=== PATIENT | female | born 1995 | race Caucasian/White ===

== ENCOUNTER 2016-08-15 19:02 | Emergency (ER) | payer OTHER ==
[2016-08-15 19:15] VITALS: BP 157/77; PULSE 102; RESP 18; TEMP 98; O2SAT 97
[2016-08-15] MEDS ORDERED: BENZONATATE 100 MG CAP PO ONE (20:38)
--- NOTE | 2016-08-15 21:46 | UCPHY ---
H & P Time Seen by Provider: 08/15/16 20:36 Patient Type: New HPI/ROS: HPI Cough. 20-year-old female by private vehicle. She complains of cough, muscle aches, low-grade fever, persistent since evening. Cough described as dry. She has been using her nebulizer albuterol at home which she uses for her asthma without any relief. ROS: Constitutional: As above, no chills. No weakness. Eyes: No discharge. No changes in vision. ENT: No sore throat. No nasal congestion or rhinorrhea. Respiratory: As above. No shortness of breath. Cardiac: No chest pain, no palpitations. Gastrointestinal: No abdominal pain, no vomiting, no diarrhea. Genitourinary: No hematuria. No dysuria or increased frequency with urination. Musculoskeletal: As above. Skin: No rashes. Neurological: No headache. No focal weakness or altered sensation. Past medical history: Asthma. As above. Social history: Nonsmoker. Here by herself. [employer]. Physical Exam: General Appearance: Alert, no distress. This patient is responding to questions appropriately and in full sentences. This patient appears well- hydrated and well-nourished. Eyes: Pupils equal and round no pallor or injection. No lid edema, erythema or injection. ENT, Mouth: Mucous membranes are moist. The pharyngeal tissues are unremarkable. No edema or swelling. No asymmetry suggestive of abscess. No erythema or exudates. Respiratory: There are no retractions, faint rhonchi and scant wheezing on exhalation bilaterally. Dry hacking cough. No tachypnea. Cardiovascular: Regular rate and rhythm. No murmur. Neurological: Motor sensory function is grossly intact. Cranial nerves are normal. Gait is normal. Skin: Warm and dry, no rashes. Musculoskeletal: Neck is supple and nontender. Extremities are symmetrical. All joints range without pain or impingement. Psychiatric: No agitation. No depression. Database: EKG: Imaging: Chest x-ray PA and lateral; the cardiac mediastinal silhouette is unremarkable. No evidence of infiltrate or pneumothorax. No acute cardiopulmonary disease process noted. Interpreted by me. Procedures: Emergency department course: Patient given 60 mg of oral prednisone. She has had no relief from her albuterol nebulizer at home. She was given 200 mg of Tessalon Perle. Chest x- ray obtained. Influenza negative. 9:45 p.m., patient re-evaluated. Resting comfortably at this time. States that she is feeling better. Cough is better. Results of her x-ray was discussed. She is outside of the treatment time window for influenza and Tamiflu. She feels comfortable going home and I feel she is safe for discharge. She will be prescribed a short course of prednisone, Tessalon Perle and Hycodan cough syrup. Follow-up and return to emergency department precautions were reviewed with her. All of her questions were answered. She was discharged in good condition. Differential Diagnosis: The differential diagnosis on this patient includes but is not limited to bronchitis, viral upper respiratory infection, influenza. Pneumonia unlikely. This represents a partial list of diagnoses considered. These considerations are based on history, physical exam, past history, reassessment and diagnostic testing. Smoking Status: Never smoked Constitutional: Initial Vital Signs Temperature (C) 36.6 C 08/15/16 19:12 Heart Rate 102 H 08/15/16 19:12 Respiratory Rate 18 08/15/16 19:12 Blood Pressure 157/77 H 08/15/16 19:12 O2 Sat (%) 97 08/15/16 19:12 O2 Delivery Mode Room Air Allergies/Adverse Reactions: Sulfa (Sulfonamide Antibiotics) Allergy (Verified 08/15/16 19:11) Home Medications: Medication Instructions Recorded Bc Pills 08/15/16 Benzonatate [Tessalon Pearles] 100 mg PO TID #12 cap 08/15/16 HYDROcodone/HOMATROPINE HYCODA 1 tsp PO Q4-6PRN PRN #120 ml 08/15/16 [Hycodan Syrup (RX)] Zoloft 100mg (*) 08/15/16 predniSONE [prednisone 20mg (RX)] 60 mg PO DAILY #9 tab 08/15/16 Medical Decision Making - Data Points Laboratory Results: 08/15/16 19:20 Influenza Typ A,B (DFA) NEGATIVE FOR FLU (NEGATIVE) Medications Given: Discontinued Medications Benzonatate (Tessalon Pearles) 200 mg PO EDNOW ONE Stop: 08/15/16 20:39 Last Admin: 08/15/16 21:12 Dose: 100 mg Departure - Departure Disposition: Home, Routine, Self-Care Clinical Impression: Bronchitis, Upper respiratory infection Condition: Good Instructions: Acute Bronchitis (ED) Additional Instructions: Read and follow provided instructions. Follow-up with your primary care physician in 1-2 days for re-evaluation. Take medication as prescribed. Ibuprofen dosin mg every 6 hours with meals for the next 3 days only. Use albuterol nebulizer inhaler every 2-4 hours as needed for cough and wheezing. Return to the emergency department for worsening symptoms or other serious concerns. Referrals: NONE *PRIMARY CARE P,. [Primary Care Provider] - As per Instructions Prescriptions: Benzonatate [Tessalon Pearles] 100 mg PO TID #12 cap HYDROcodone/HOMATROPINE HYCODA [Hycodan Syrup (RX)] 1 tsp PO Q4-6PRN PRN #120 ml PRN Reason: Cough predniSONE [prednisone 20mg (RX)] 60 mg PO DAILY #9 tab - PQRS PQRS Measurement: Not applicable.
[2016-08-15] MEDS ORDERED: predniSONE 20 MG TAB PO ONE (21:48)
== END 2016-08-15 21:49 | disposition home or self-care (01) ==
LOC: CED 19:02
DX: J40 Bronchitis, not specified as acute or chronic (principal); J06.9 Acute upper respiratory infection, unspecified
CPT/HCPCS: 71020-PO; 87400-PO; 99203-PO; G0463-PO

== ENCOUNTER 2018-08-30 13:37 | Emergency (ER) | payer OTHER ==
[2018-08-30] MEDS ORDERED: ASPIRIN 81 MG CHEWABLE TAB PO ONE (14:29)
[2018-08-30] MEDS ORDERED: NS 500 ML IV ONE (14:29)
--- NOTE | 2018-08-30 14:33 | EDPHY ---
H & P Time Seen by Provider: 08/30/18 14:13 HPI/ROS: CHIEF COMPLAINT: Left-sided chest tightness HISTORY OF PRESENT ILLNESS: The patient is a 20-year-old female presents emergency department left-sided chest discomfort. The patient states that her chest pain started approximately 8 months ago. The patient was seen by an outside physician. She was diagnosed with "fibrous tissue."This was diagnosed off physical exam. Patient has a history of asthma and has been treating herself with both Xopenex and albuterol. She feels mildly short of breath for the past month. She comes in today because she had sharp pain radiating to her left scapula starting last night. Patient denies any fevers or chills. No cough. No leg pain or swelling. No recent travel. Patient states that she is quite anxious. REVIEW OF SYSTEMS: 10 systems were reveiwed and are negative with the exception of the elements mentioned in the history of present illness. Past Medical/Surgical History: Asthma social history: Patient does not smoke Smoking Status: Never smoked Physical Exam: Vitals noted GENERAL: Well-appearing, in no acute distress, alert. HEENT: Eyes normal to inspection, normal pharynx, no signs of dehydration. NECK: Normal, supple. RESPIRATORY: Clear to auscultation bilaterally, no rales, rhonchi or wheezing. Normal Chest wall: Normal. No tenderness palpation CVS: Regular rate and rhythm, no rubs, murmurs, or gallops. ABDOMEN: Soft, nontender, nondistended, no organomegaly. BACK: Normal to inspection, no CVA tenderness. SKIN: Normal color, no rash, warm, dry. No pallor. EXTREMITIES: No pedal edema, no calf tenderness, no Homans sign or cords, no joint swelling. NEURO/PSYCH: Alert and oriented, normal mood and affect, normal motor sensory exam. Constitutional: Initial Vital Signs Temperature (C) 36.9 C 08/30/18 13:42 Heart Rate 82 08/30/18 13:42 Respiratory Rate 18 08/30/18 13:42 Blood Pressure 136/90 H 08/30/18 13:42 O2 Sat (%) 99 08/30/18 13:42 O2 Delivery Mode Room Air Allergies/Adverse Reactions: Sulfa (Sulfonamide Antibiotics) Allergy (Verified 08/30/18 13:42) Home Medications: Medication Instructions Recorded Bc Pills 08/15/16 Benzonatate [Tessalon Pearles] 100 mg PO TID #12 cap 08/15/16 HYDROcodone/HOMATROPINE HYCODA 1 tsp PO Q4-6PRN PRN #120 ml 08/15/16 [Hycodan Syrup (RX)] Zoloft 100mg (*) 08/15/16 predniSONE [prednisone 20mg (RX)] 60 mg PO DAILY #9 tab 08/15/16 Medical Decision Making - Diagnostics Imaging Results: Imaging Impressions Chest X-Ray 08/30/18 14:29 Impression: No acute findings in the chest. ED Course/Re-evaluation: In the emergency department I discussed possible etiologies with the patient. I answered all her questions. An IV was placed. Laboratory studies, chest x- ray and EKG were obtained. Patient was given aspirin orally. EKG shows normal sinus rhythm, normal rate, left axis deviation,, normal intervals. There are no ST or T-wave abnormalities. CBC and chemistry unremarkable. Troponin is negative. D-dimer is negative. Chest x-ray: No acute disease noted I discussed the result with the patient. I answered all her questions. Patient was given warnings prior to leaving. She will return with worsening symptoms. Differential Diagnosis: My differential includes but is not limited to ACS, acute WI, pulmonary embolus , pleurisy, dissection, aneurysm, pericarditis, pneumonia, bronchitis, asthma - Data Points Laboratory Results: Laboratory Results 08/30/18 15:01 08/30/18 15:01 08/30/18 08/30/18 08/30/18 15:05 15:01 15:01 WBC RBC Hgb Hct MCV MCH MCHC RDW Plt Count MPV Neut % (Auto) Lymph % (Auto) [place] % (Auto) Eos % (Auto) Baso % (Auto) Nucleat RBC Rel Count Absolute Neuts (auto) Absolute Lymphs (auto) Absolute Monos (auto) Absolute Eos (auto) Absolute Basos (auto) Absolute Nucleated RBC Immature Gran % Immature Gran # D-Dimer < 0.27 ug/mLFEU ug/mLFEU (0.00-0.50) Sodium Potassium Chloride Carbon Dioxide Anion Gap BUN Creatinine Estimated GFR Glucose Calcium POC Troponin I 0.01 ng/mL ng/mL (0.00-0.08) Beta HCG, Qual NEGATIVE 08/30/18 08/30/18 15:01 15:01 WBC 8.57 10^3/uL 10^3/uL (3.80-9.50) RBC 4.70 10^6/uL 10^6/uL (4.18-5.33) Hgb 13.8 g/dL g/dL (12.6-16.3) Hct 41.2 % % (38.0-47.0) MCV 87.7 fL fL (81.5-99.8) MCH 29.4 pg pg (27.9-34.1) MCHC 33.5 g/dL g/dL (32.4-36.7) RDW 12.3 % % (11.5-15.2) Plt Count 227 10^3/uL 10^3/uL (150-400) MPV 12.3 fL H fL (8.7-11.7) Neut % (Auto) 63.7 % % (39.3-74.2) Lymph % (Auto) 28.6 % % (15.0-45.0) [place] % (Auto) 6.0 % % (4.5-13.0) Eos % (Auto) 0.9 % % (0.6-7.6) Baso % (Auto) 0.4 % % (0.3-1.7) Nucleat RBC Rel Count 0.0 % % (0.0-0.2) Absolute Neuts (auto) 5.47 10^3/uL 10^3/uL (1.70-6.50) Absolute Lymphs (auto) 2.45 10^3/uL 10^3/uL (1.00-3.00) Absolute Monos (auto) 0.51 10^3/uL 10^3/uL (0.30-0.80) Absolute Eos (auto) 0.08 10^3/uL 10^3/uL (0.03-0.40) Absolute Basos (auto) 0.03 10^3/uL 10^3/uL (0.02-0.10) Absolute Nucleated RBC 0.00 10^3/uL 10^3/uL (0-0.01) Immature Gran % 0.4 % % (0.0-1.1) Immature Gran # 0.03 10^3/uL 10^3/uL (0.00-0.10) D-Dimer Sodium 137 mEq/L mEq/L (135-145) Potassium 4.1 mEq/L mEq/L (3.5-5.2) Chloride 104 mEq/L mEq/L (97-110) Carbon Dioxide 20 mEq/l L mEq/l (22-31) Anion Gap 13 mEq/L mEq/L (6-14) BUN 7 mg/dL mg/dL (7-23) Creatinine 0.6 mg/dL mg/dL (0.6-1.0) Estimated GFR > 60 Glucose 87 mg/dL mg/dL (70-100) Calcium 9.8 mg/dL mg/dL (8.5-10.4) POC Troponin I Beta HCG, Qual Medications Given: Discontinued Medications Aspirin (Aspirin) 324 mg PO EDNOW ONE Stop: 08/30/18 14:30 Last Admin: 08/30/18 15:27 Dose: 324 mg Sodium Chloride (Ns) 500 mls @ 1,000 mls/hr IV EDNOW ONE PRN Reason: Protocol Stop: 08/30/18 14:58 Last Admin: 08/30/18 15:27 Dose: 500 mls Point of Care Test Results: Chemistry 08/30/18 15:05 POC Troponin I 0.01 ng/mL ng/mL (0.00-0.08) Departure - Departure Disposition: Home, Routine, Self-Care Clinical Impression: Chest pain Qualifiers: Chest pain type: unspecified Qualified Code(s): R07.9 - Chest pain, unspecified Condition: Fair Instructions: Chest Pain (ED) Additional Instructions: Return with increasing pain, shortness of breath, fever or any other concerns. Referrals: [facility] PALMER [Other] - 2-3 days without fail Joycelyn Rousseau MD [Medical Doctor] - 5-7 days, call for appt.
[2018-08-30 15:29] LABS: PLATELET COUNT 227 10^3/uL (150-400)
[2018-08-30 16:07] VITALS: BP 133/89
--- NOTE | 2018-08-30 20:25 | CPEKG ---
Test Reason : OPEN Blood Pressure : / mmHG Vent. Rate : 078 BPM Atrial Rate : 079 BPM P-R Int : 162 ms QRS Dur : 103 ms QT Int : 414 ms P-R-T Axes : 067 -52 052 degrees QTc Int : 472 ms Sinus rhythm LAD, consider left anterior fascicular block Confirmed by Shaneka Ornelas ([id number]) on 08/30/2018 8:25:04 PM Referred By: Shaneka Ornelas Confirmed By:Shaneka Ornelas
== END 2018-08-30 16:21 | disposition home or self-care (01) ==
DX: R07.89 Other chest pain (principal); E86.9 Volume depletion, unspecified
CPT/HCPCS: 82607-90; 84484-ER

== ENCOUNTER → 2018-09-29 | Outpatient (CLI) | payer OTHER | LOC: BMCIMAGING 08:04 | PROVIDERS: ATTEND Family Medicine | DX: R16.0 Hepatomegaly, not elsewhere classified (principal); K76.0 Fatty (change of) liver, not elsewhere classified; E01.0 Iodine-deficiency related diffuse (endemic) goiter; K20.0 Eosinophilic esophagitis; R07.9 Chest pain, unspecified | CPT/HCPCS: 76536-PO ==